=== PATIENT | male | born 1970 | race Hispanic/Latino ===

== ENCOUNTER 2018-03-02 17:20 | Observation (INO) | payer BC ==
[~2018-03-02] VITALS: Ht 167.6 cm; Wt 102.6 kg
[2018-03-02 18:01] LABS: APPEARANCE,URINE Clear (CLEAR); BILIRUBIN,URINE Negative (NEGATIVE); COLOR,URINE Yellow (YELLOW); GLUCOSE, URINE (UA) Negative (NEGATIVE); KETONES,URINE Trace mg/dL (NEGATIVE); LEUKOCYTE ESTERASE ,URINE Negative (NEGATIVE); NITRATE,URINE Negative (NEGATIVE); OCCULT BLOOD,URINE Negative (NEGATIVE); PROTEIN,URINE Negative (NEGATIVE); UROBILINOGEN,URINE 0.2 mg/dL (0.2-1.0)
[2018-03-02] MEDS ORDERED: SODIUM CHLORIDE 0.9% 1000ML 1,000 ML IV ONE (18:06)
[2018-03-02] MEDS ORDERED: KETOROLAC TROMETHAMINE 30MG/ML ONE (18:06)
[2018-03-02 18:11] LABS: BASOPHILS % (AUTO) 2.3 % (0.0-5.0); EOSINOPHILS % (AUTO) 0.9 % (0.0-8.0); HEMATOCRIT 37.8 % (42-54); LYMPHOCYTES % (AUTO) 27.9 % (21.0-51.0); MEAN CORPUSCULAR HEMOGLOBIN 28.5 pg (27.0-33.0); MEAN CORPUSCULAR HGB CONC 33.5 g/dL (32.0-36.0); MEAN CORPUSCULAR VOLUME 84.9 fL (79-99); MONOCYTES % (AUTO) 5.3 % (3.0-13.0); NEUTROPHILS % (AUTO) 63.6 % (40.0-77.0); PLATELET COUNT (AUTO) 330 K/uL (130-400); RED BLOOD CELL COUNT(AUTO) 4.45 MIL/uL (4.50-6.20); RED CELL DISTRIBUTION WIDTH 13.7 % (11.0-15.5); WHITE BLOOD COUNT (AUTO) 10.3 K/uL (4.8-10.8)
[2018-03-02 18:18] LABS: POTASSIUM 3.7 mmol/L (3.5-5.1)
[2018-03-02] MEDS ORDERED: CLONIDINE HCL 0.1 MG TABLET ONE (19:11)
[2018-03-02] MEDS ORDERED: POTASSIUM CHLORIDE 20MEQ/100ML 100 ML IV PRN (20:30)
[2018-03-02] MEDS ORDERED: DEXTROSE 50%-WATER 50 ML DISP.SYRIN IV PRN (20:30)
[2018-03-02] MEDS ORDERED: LIDOCAINE HCL-MPF 1% 2ML VIAL IJ PRN (20:30)
[2018-03-02] MEDS ORDERED: GLUCAGON 1MG KIT 1 MG ML IM PRN (20:30)
[2018-03-02] MEDS ORDERED: POTASSIUM CHLORIDE 10% ELIXIR 20 MEQ/15 ML UDCUP PO PRN (20:30)
[2018-03-02] MEDS ORDERED: ONDANSETRON HCL 4 MG/2 ML VIAL IVP PRN (20:30)
[2018-03-02] MEDS ORDERED: ENOXAPARIN SODIUM 40 MG/0.4 ML SYRINGE SQ SCH (20:30)
[2018-03-02] MEDS ORDERED: POTASSIUM CHLORIDE 20 MEQ ERTAB PO PRN (20:30)
[2018-03-02] MEDS ORDERED: ACETAMINOPHEN 325 MG TAB PO PRN (20:30)
[2018-03-02 20:58] VITALS: BP 136/86
[2018-03-02] MEDS: INSULIN R PO SSI SQ SCH (21:00)
[2018-03-02] MEDS: CHLORDIAZEPOXIDE HCL 5 MG CAPSULE PO SCH (22:50)
[2018-03-02] MEDS: FAMOTIDINE 20MG TAB 20 MG TAB PO SCH (22:50)
[2018-03-02] MEDS ORDERED: CHLO500T3 PO (23:33)
[2018-03-02] MEDS ORDERED: HYDR-4064 PO (23:33)
[2018-03-02] MEDS ORDERED: METO50TA18 PO (23:33)
[2018-03-02] MEDS ORDERED: SITA1TAB6 PO (23:33)
[2018-03-02] MEDS ORDERED: SULF500T8 PO (23:33)
[2018-03-02] MEDS ORDERED: NAPR-1023 PO (23:33)
[2018-03-02] MEDS ORDERED: CLON0.5T12 PO (23:33)
[2018-03-02] MEDS ORDERED: ATOR20TA65 PO (23:33)
[2018-03-02] MEDS ORDERED: LOSA100T29 PO ×2 (23:33)
[2018-03-02] MEDS ORDERED: IBUP-2071 PO (23:33)
[2018-03-02] MEDS ORDERED: FERR325T22 PO (23:33)
[2018-03-02] MEDS ORDERED: FLUT15.88 NS (23:33)
[2018-03-02] MEDS ORDERED: DULO60CA63 PO (23:33)
[2018-03-02] MEDS ORDERED: NITR0.4T SL (23:33)
[2018-03-02] MEDS ORDERED: ZOLPIDEM TARTRATE 5 MG TAB PO STA (23:47)
[2018-03-02] MEDS ORDERED: ZOLPIDEM TARTRATE 5 MG TAB ONE (23:51)
[2018-03-02 23:54] VITALS: BP 117/70
[2018-03-03] MEDS: KETOROLAC TROMETHAMINE 30MG/ML IV PRN ×2 (01:11→08:28)
[2018-03-03 04:13] VITALS: BP 139/89
[2018-03-03] MEDS: INSULIN R PO SSI SQ SCH ×2 (05:56→11:30)
[2018-03-03] MEDS: CHLORDIAZEPOXIDE HCL 5 MG CAPSULE PO SCH ×2 (06:15→14:53)
[2018-03-03 06:23] LABS: HEMATOCRIT 35.3 % (42-54); MEAN CORPUSCULAR HEMOGLOBIN 30.1 pg (27.0-33.0); MEAN CORPUSCULAR HGB CONC 35.4 g/dL (32.0-36.0); PLATELET COUNT (AUTO) 329 K/uL (130-400); RED BLOOD CELL COUNT(AUTO) 4.15 MIL/uL (4.50-6.20); RED CELL DISTRIBUTION WIDTH 13.5 % (11.0-15.5); WHITE BLOOD COUNT (AUTO) 9.5 K/uL (4.8-10.8)
[2018-03-03 06:32] LABS: POTASSIUM 3.7 mmol/L (3.5-5.1)
[2018-03-03 08:28] VITALS: BP 152/97
[2018-03-03] MEDS: FAMOTIDINE 20MG TAB 20 MG TAB PO SCH (08:28)
[2018-03-03 11:59] VITALS: BP 138/82
[2018-03-03] MEDS ORDERED: ALPRAZOLAM 0.5 MG TABLET PO PRN (13:30)
[2018-03-03] MEDS ORDERED: ZOLP5TAB2 PO (16:10)
[2018-03-03] MEDS ORDERED: NAPR-1023 PO (16:10)
[2018-03-03] MEDS ORDERED: FAMO20TA8 PO (16:10)
[2018-03-03] MEDS ORDERED: ALPR0.5T8 PO (16:10)
[2018-03-03 16:39] VITALS: BP 147/91
[2018-03-03] MEDS ORDERED: ZOLPIDEM TARTRATE 5 MG TAB PO SCH (21:00)
== END 2018-03-03 17:25 | disposition home or self-care (01) ==
LOC: EDH 17:20 → EDHIP 19:53 → 3AH 20:48
PROVIDERS: ADMIT Family Medicine; ATTEND Family Medicine
DX: F41.9 Anxiety disorder, unspecified (principal); F11.23 Opioid dependence with withdrawal; I25.10 Atherosclerotic heart disease of native coronary artery without angina pectoris; E11.9 Type 2 diabetes mellitus without complications; I10 Essential (primary) hypertension; G89.29 Other chronic pain; Z79.899 Other long term (current) drug therapy; Z87.442 Personal history of urinary calculi; Z83.3 Family history of diabetes mellitus; Z82.49 Family history of ischemic heart disease and other diseases of the circulatory system; Z80.8 Family history of malignant neoplasm of other organs or systems; Z80.3 Family history of malignant neoplasm of breast; Z80.0 Family history of malignant neoplasm of digestive organs
CPT/HCPCS: 36415 ×2; 74176; 80048 ×2; 81003; 82948 ×4; 85025; 85027; 96372; 96374; 96376; 99285; G0378 ×22; J1650; J1885 ×4; J7030

== ENCOUNTER 2018-03-04 00:18 | Emergency (ER) | payer BC ==
[~2018-03-04 00:18] MED LIST: ALPR0.5T8 PO; ATOR20TA65 PO; CHLO500T3 PO; DULO60CA63 PO; FAMO20TA8 PO; FERR325T22 PO; FLUT15.88 NS; IBUP-2071 PO; LOSA100T29 PO; METO50TA18 PO; NAPR-1023 PO; NITR0.4T SL; SITA1TAB6 PO; SULF500T8 PO; ZOLP5TAB2 PO
[2018-03-04] MEDS ORDERED: LORAZEPAM 2 MG/ML 1 ML VIAL ONE (01:01)
== END 2018-03-04 01:51 | disposition home or self-care (01) ==
LOC: EDH 00:18
DX: F41.1 Generalized anxiety disorder (principal); E11.9 Type 2 diabetes mellitus without complications; I10 Essential (primary) hypertension; M06.9 Rheumatoid arthritis, unspecified; I25.10 Atherosclerotic heart disease of native coronary artery without angina pectoris; G89.29 Other chronic pain; Z79.899 Other long term (current) drug therapy
CPT/HCPCS: 96372; 99283; J2060

== ENCOUNTER → 2020-07-25 | Outpatient (CLI) | payer BC ==
[~2020-07-25] MED LIST changes: -DULO60CA63 PO; +DULO60CA64 PO; +FLUT15.845 NS; -FLUT15.88 NS; -LOSA100T29 PO; +LOSA100T58 PO; +REGADENOSON 0.4 MG/5 ML PF SYG IVP SCH
== END | disposition home or self-care (01) ==
LOC: SHCH 08:24
PROVIDERS: ATTEND Internal Medicine Cardiovascular Disease
DX: I25.10 Atherosclerotic heart disease of native coronary artery without angina pectoris (principal)
CPT/HCPCS: 78452; 93017; 96374; A9500 ×2; J2785

== ENCOUNTER → 2023-02-11 | Emergency (ER) | payer OTHER, BC ==
[~2023-02-11] VITALS: Ht 167.6 cm; Wt 108.9 kg
[~2023-02-11] MED LIST changes: -LOSA100T58 PO; +LOSA100T59 PO; +NAPR500T6 PO; -REGADENOSON 0.4 MG/5 ML PF SYG IVP SCH
[2023-02-11 14:20] VITALS: BP 118/72
== END ==
LOC: EDH 11:59
DX: S09.8XXA Other specified injuries of head, initial encounter (principal); W17.89XA Other fall from one level to another, initial encounter; Y93.89 Activity, other specified; Y92.89 Other specified places as the place of occurrence of the external cause; Y99.8 Other external cause status; M54.2 Cervicalgia; I10 Essential (primary) hypertension; E11.9 Type 2 diabetes mellitus without complications; E78.00 Pure hypercholesterolemia, unspecified; Z79.899 Other long term (current) drug therapy
CPT/HCPCS: 70450; 72125